=== PATIENT | male | born 2000 | race African-American/Black ===

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

== ENCOUNTER 2022-07-18 16:50 | Emergency (ER) | payer OTHER ==
[2022-07-18 17:19] VITALS: BP 128/62; PULSE 92; RESP 17; TEMP 97.8; BMI 25.8
[2022-07-18] MEDS ORDERED: levETIRAcetam 500 MG/5 ML INJECTION VIAL IVPB ONE (19:00)
[2022-07-18] MEDS ORDERED: levETIRAcetam 500 MG TABLET (FP) PO ONE ×2 (19:02→19:03)
[2022-07-18 19:14] LABS: BASO % 0.5 % (0-2.0); EOS % 0.7 % (0-4.5); HEMATOCRIT 43.1 % (35.4-49); MCHC 34.7 g/dl (32.0-35.9); MEAN CELL VOLUME 86.4 fl (80-96); MEAN PLT VOLUME 9.1 fl (7.5-11.1); MONO % 4.7 % (3.8-10.2); NEUT % 78.1 % (42.8-82.8); PLATELET COUNT 202 10^3/uL (134-434); RBC 4.99 M/mm3 (4.00-5.60); RDW 13.6 % (11.9-15.9)
[2022-07-18 19:37] LABS: BLOOD UREA NITROGEN 9.7 mg/dL (7-18)
[2022-07-18 19:40] LABS: CREATININE 1.3 mg/dL (0.55-1.3)
[2022-07-18 19:41] LABS: TOT PROT 8.5 g/dl (6.4-8.2)
[2022-07-18 19:42] LABS: BILIRUBIN,TOTAL 0.4 mg/dL (0.2-1)
== END 2022-07-18 19:12 | disposition admitted as inpatient to this hospital (09) ==
LOC: JER 16:50
DX: R56.9 Unspecified convulsions (principal)
CPT/HCPCS: 36415; 70450-TC; 72125-TC; 80053; 82962; 85025; 99284-25

== ENCOUNTER 2023-06-20 06:36 | Emergency (ER) | payer OTHER ==
[2023-06-20 06:44] VITALS: BP 125/86; PULSE 61; RESP 20; TEMP 97.9; BMI 20.5
[2023-06-20] MEDS ORDERED: ACETAMINOPHEN 500 MG TABLET (FP) ONE (07:35)
[2023-06-20] MEDS: ACETAMINOPHEN 500 MG TABLET (FP) PO ONE (07:42)
[2023-06-20 08:18] LABS: URINE APPEARANCE CLEAR; URINE BILIRUBIN NEGATIVE (NEGATIVE); URINE COLOR YELLOW; URINE GLUCOSE (UA) NEGATIVE (NEGATIVE); URINE KETONE NEGATIVE (NEGATIVE); URINE LEUK ESTERASE NEGATIVE (NEGATIVE); URINE NITRITE NEGATIVE (NEGATIVE); URINE PROTEIN NEGATIVE (NEGATIVE); URINE UROBILINOGEN 0.2 mg/dL (0.2-1.0)
[2023-06-20 08:19] LABS: BASO % 0.5 % (0-2.0); EOS % 2.9 % (0-4.5); HEMATOCRIT 42.3 % (35.4-49); HEMOGLOBIN 14.3 GM/dL (11.7-16.9); LYMPH % 28.4 % (8-40); MCH 29.6 pg (25.7-33.7); MCHC 33.7 g/dl (32.0-35.9); MEAN CELL VOLUME 87.8 fl (80-96); MEAN PLT VOLUME 8.6 fl (7.5-11.1); MONO % 4.8 % (3.8-10.2); NEUT % 63.4 % (42.8-82.8); PLATELET COUNT 191 10^3/uL (134-434); RBC 4.82 M/mm3 (4.00-5.60); RDW 13.2 % (11.9-15.9); WHITE BLOOD COUNT 4.2 K/mm3 (4.0-10.0)
[2023-06-20 08:54] LABS: SICKLE CELL SCREEN NEGATIVE (NEGATIVE)
== END 2023-06-20 08:35 | disposition home or self-care (01) ==
LOC: JER 06:36
DX: N48.29 Other inflammatory disorders of penis (principal)
CPT/HCPCS: 36415; 81003; 85025; 85660; 87086; 87491; 87591; 99284-25